=== PATIENT | female | born 1995 | race Caucasian/White ===

== ENCOUNTER 2020-03-07 02:05 | Emergency (ER) | payer OTHER ==
[2020-03-07 02:40] VITALS: BP 142/99
[2020-03-07] MEDS ORDERED: TETANUS/DIPHTHERIA TOX-ADULT 0.5 ML SYR (>=7YO) IM ONE ×2 (06:37→09:07)
[2020-03-07 08:00] LABS: ALBUMIN 4.4 g/dL (3.5-5.0); ALKALINE PHOSPHATASE 82 U/L (38-126); ANION GAP 11 (5-19); ASPARTATE AMINO TRANSFERASE 34 U/L (14-36); BLOOD UREA NITROGEN 17 mg/dL (7-20); CALCIUM 9.5 mg/dL (8.4-10.2); CARBON DIOXIDE 24 mmol/L (22-30); CHLORIDE 106 mmol/L (98-107); GLUCOSE 84 mg/dL (75-110); POTASSIUM 4.1 mmol/L (3.6-5.0); TOTAL PROTEIN 7.4 g/dL (6.3-8.2)
[2020-03-07 08:04] LABS: BILIRUBIN,TOTAL 0.5 mg/dL (0.2-1.3)
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
--- OUTSIDE RECORDS SUMMARY | 2020-03-10 08:52 | XMS REPORT ---
:1995 [facility] [address] [place] [address] Care Team Providers Name Role Phone PCP Primary Care Physician Unavailable Lamont BAKER Attending Clinician Unavailable ADITHYA Attending Clinician Unavailable Catalina HAMILTON Attending Clinician Unavailable Jackie RABAGO Attending Clinician Unavailable RICKY Admitting Clinician Unavailable Allergies, Adverse Reactions, Alerts This patient has no known allergies or adverse reactions. Medications This patient has no known medications. Problems This patient has no known problems. Procedures This patient has no known procedures. Results This patient has no known results. Encounters Start End Encounter Admission Attending Care Care Encounter ID Date/Time Date/Time Type Type Clinicians Facility Department 2020-01-17 2020-01-17 Emergency UR SAMUEL, [facility] [id number] 04:31:00 05:13:00 WENDI 2020-01-16 2020-01-16 Emergency [facility] [id number] 20:30:00 22:30:00 2020-01-16 2020-01-16 Emergency UR [facility] [id number] 00:59:00 03:20:00 2019-09-07 2019-09-07 Emergency UR ADITHYA [facility] [id number] 21:14:00 22:44:00 OLIVIER 2019-08-27 2019-08-28 Emergency ER ALFONSO [facility] [id number] 21:05:00 02:09:00 ALBERT 2019-08-04 2019-08-04 Emergency UR HIMA [facility] [id number] 18:43:00 19:47:00 [place] Payer Name Policy Type Policy Number Effective Date Expiration D ate [employer] [id number] 2018 00:00:00 LIABILITY [id number] 2019 00:00:00 00:00:00 [employer] [id number] 2019 00:00:00 Social History This patient has no known social history. Vital Signs This patient has no known vital signs.
== END 2020-03-07 09:17 | disposition left against medical advice (07) ==
LOC: ER 02:05
DX: T76.21XA Adult sexual abuse, suspected, initial encounter (principal); Z53.29 Procedure and treatment not carried out because of patient's decision for other reasons; S40.021A Contusion of right upper arm, initial encounter; X58.XXXA Exposure to other specified factors, initial encounter; F17.200 Nicotine dependence, unspecified, uncomplicated; Z91.041 Radiographic dye allergy status
CPT/HCPCS: 36415; 80053; 81025; 86592; 86701; 99281

== ENCOUNTER 2020-03-07 21:50 | Emergency (ER) | payer OTHER ==
[2020-03-07 22:14] VITALS: BP 131/65
== END 2020-03-08 02:56 | disposition left against medical advice (07) ==
LOC: ER 21:50
DX: Z53.21 Procedure and treatment not carried out due to patient leaving prior to being seen by health care provider (principal)